=== PATIENT | female | born 1970 | race Caucasian/White ===

== ENCOUNTER 2021-05-07 17:53 | Observation (INO) | payer BC, OTHER, SELFPAY ==
[2021-05-07] MEDS ORDERED: NA CHLORIDE 0.9% 1,000 ML ONE (20:39)
[2021-05-07 20:45] LABS: Basophils % 1.3 % (0-1.3); Lymphocytes % 18.4 % (15.3-44.8); RBC Red Blood Cell Count 4.72 M/uL (3.86-4.86)
[2021-05-07 20:50] LABS: Protime INR 1.09
[2021-05-07 21:10] LABS: ALT/SGPT 21 U/L (12-78); AST/SGOT 9 U/L (15-37); Albumin 3.7 g/dL (3.4-5.0); Alkaline Phosphatase 79 U/L (45-117); BUN Blood Urea Nitrogen 11 mg/dL (7-18); Bicarbonate 29 mmol/L (21-32); Bilirubin Direct 0.1 mg/dL (0-0.2); Bilirubin Total 0.3 mg/dL (0.2-1.0); Glucose Level 109 mg/dL (74-106); Magnesium 2.2 mg/dL (1.8-2.4); NT PRO-BNP 19 pg/mL (<125); Potassium 3.7 mmol/L (3.5-5.1); Protein, Total 7.9 g/dL (6.4-8.2); Sodium Level 139 mmol/L (136-145); Troponin (Emerg Dept Use Only) < 0.02 ng/mL (0.0-0.045)
[2021-05-07] MEDS ORDERED: ACETAMINOPHEN 500 MG TAB ONE (21:32)
--- NOTE | 2021-05-07 21:51 | RAD REPORT ---
EXAM DESCRIPTION: RAD - Chest Single View - 05/07/2021 9:07 pm CLINICAL HISTORY: SOB;Swelling COMPARISON: None TECHNIQUE: AP portable chest image was obtained 05/07/2021 9:07 pm . FINDINGS: Lungs are clear. Heart and vasculature are normal. No measurable pleural effusion and no p neumothorax. No acute bony abnormality seen. No acute aortic findings suspected. Artifact overlies lo wer lung simpson. IMPRESSION: No acute cardiopulmonary process.
--- NOTE | 2021-05-07 23:54 | ER ---
Nurse's Notes [facility] Name: Shirin Escobar Age: 50 yrs Sex: Female : 1970 Arrival Date: 05/07/2021 Time: 17:54 Bed 17 Private MD: Diagnosis: Retropharyngeal Edema, Pharyngitis, Neck Pain Presentation: 05/07 19:13 Chief complaint: Patient states: Woke up yesterday with throat swelling and pain with lp1 swallowing, feeling of lower neck swelling/lump; Reports pain to back of neck when swallowing. Coronavirus screen: chills, fever, headache, sore throat. Ebola Screen: No symptoms or risks identified at this time. Risk Assessment: Do you want to hurt yourself or someone else? Patient reports no desire to harm self or others. Onset of symptoms was May 06, 2021. 19:13 Method Of Arrival: Ambulatory lp1 19:13 Acuity: SAMUEL 3 lp1 19:18 Initial Sepsis Screen: Does the patient meet any 2 criteria? No. Patient's initial lp1 sepsis screen is negative. Does the patient have a suspected source of infection? No. Patient's initial sepsis screen is negative. INFORMATION ASSOC: 19:17 LMP N/A - Irregular menses lp1 Historical: - Allergies: 19:16 No Known Allergies; lp1 - Home Meds: 19:16 Veronica Oral [Active]; lp1 - PMHx: 19:16 None; lp1 - PSHx: 19:16 cyst removal; lp1 - Immunization history:: Adult Immunizations up to date. - Social history:: Smoking status: Patient denies any tobacco usage or history of. Screenin:19 Abuse screen: Denies threats or abuse. Denies injuries from another. Nutritional lp1 screening: No deficits noted. Tuberculosis screening: No symptoms or risk factors identified. Fall Risk None identified. Assessment: 20:38 General: Appears in no apparent distress. comfortable, obese, well groomed, well bs2 developed, well nourished, Behavior is calm, cooperative, appropriate for age. Pain: Complains of pain in thyroid cartilage. Neuro: Level of Consciousness is awake, alert, obeys commands, Oriented to person, place, time, situation, Appropriate for age Automatic Door Mechanic are equal bilaterally Moves all extremities. Full function Gait is steady, Speech is normal, Facial symmetry appears normal, Pupils are PERRLA, Intact. Cardiovascular: No deficits noted. Respiratory: Reports shortness of breath on exertion. GI: No signs and/or symptoms were reported involving the gastrointestinal system. : No signs and/or symptoms were reported regarding the genitourinary system. EENT: Reports difficulty swallowing since last night. Derm: No signs and/or symptoms reported regarding the dermatologic system. Musculoskeletal: No signs and/or symptoms reported regarding the musculoskeletal system. Vital Signs: 19:18 BP 134 / 93; Pulse 103; Resp 18; Temp 100(O); Pulse Ox 100% on R/A; Weight 99.79 kg lp1 (R); Height 5 ft. 5 in. (165.10 cm); Pain 7/10; 20:32 BP 139 / 89; Pulse 101; Resp 26; Temp 100.9(O); Pulse Ox 100% on R/A; mh5 23:03 BP 111 / 63; Pulse 89; Resp 15; Temp 98.6(O); Pulse Ox 98% ; Pain 5/10; bs2 05/08 01:26 BP 109 / 61; Pulse 89; Resp 15; Temp 98.6; Pulse Ox 100% ; Pain 6/10; bs2 05/07 19:18 Body Mass Index 36.61 (99.79 kg, 165.10 cm) lp1 ED Course: 05/07 17:54 Patient arrived in ED. as 19:15 Triage completed. lp1 19:15 Arm band placed on left wrist. lp1 19:20 Patient has correct armband on for positive identification. lp1 19:45 Jerry Block MD is Attending Physician. mh7 19:58 Peggy Parker, RN is Primary Nurse. bs2 19:59 COVID-19 (Coronavirus) Document "Date of Onset" if Symptomatic Sent. bs2 20:31 Placed in gown. Bed in low position. Call light in reach. Side rails up X 1. Adult w/ mh5 patient. satellite project site monitor on. Pulse ox on. NIBP on. 20:31 EKG done, by ED staff, reviewed by Jerry Block MD COVID swab sent to lab. mh5 20:35 Rapid Strep Sent. bs2 20:35 Influenza Screen (a \\T\\ B) Sent. bs2 20:35 Troponin (emerg Dept Use Only) Sent. bs2 20:35 PT-INR Sent. bs2 20:35 NT PRO-BNP Sent. bs2 20:35 Magnesium Sent. bs2 20:35 LFT's Sent. bs2 20:35 CBC with Diff Sent. bs2 20:35 Basic Metabolic Panel Sent. bs2 20:36 Group A Streptococcus Rapid Sc Sent. bs2 20:36 TSH Sent. bs2 20:36 D-Dimer Sent. bs2 20:41 Inserted saline lock: 20 gauge in right antecubital area, using aseptic technique. bs2 Blood collected. 21:07 XRAY Chest (1 view) In Process Unspecified. EDMS 22:26 CT Head C Spine In Process Unspecified. EDMS 22:27 CT Soft Tissue Neck W/contr In Process Unspecified. EDMS 23:26 Blood Culture Adult (2) Sent. bs2 23:27 Throat Culture Sent. bs2 23:53 Bernard Smith MD is Hospitalizing Provider. [facility] 05/08 01:24 No provider procedures requiring assistance completed. Patient admitted, IV remains in bs2 place. 07:45 Primary Nurse role handed off by Peggy Parker, JUANITA bp 07:45 Gabriele Sanderson, RN is Primary Nurse. bp Administered Medications: 05/07 20:36 Drug: NS 0.9% 1000 ml Route: IV; Rate: 1000 ml; Site: right antecubital; bs2 05/08 01:25 Follow up: IV Status: Completed infusion bs2 05/07 21:19 Drug: Tylenol 1000 mg Route: PO; bs2 23:26 Follow up: Response: No adverse reaction bs2 23:37 Drug: Clindamycin 900 mg Route: IVPB; Infused Over: 30 mins; Site: right antecubital; bs2 05/08 01:24 Follow up: IV Status: Completed infusion bs2 05/07 23:54 CANCELLED (Physician Discretion; pp): Rocephin (cefTRIAXone) 1 grams IV at per protocol bs2 once; Given slow IV push per pharmacy instructions 05/08 00:00 Drug: Unasyn (ampicillin-sulbactam) 3 grams Route: IVPB; Infused Over: 30 mins; Site: bs2 right antecubital; 01:24 Follow up: IV Status: Completed infusion bs2 00:00 Drug: SOLU-Medrol (methylPrednisoLONE) 80 mg Route: IVP; Site: right antecubital; bs2 01:24 Follow up: Response: No adverse reaction bs2 Outcome: 05/07 23:54 Decision to Hospitalize by Provider. [facility] 05/08 01:25 Condition: stable bs2 Instructed on the need for admit. 14:08 Discharged to home with family, FROM [facility] bp 14:08 Patient left the ED. bp Signatures: Dispatcher [employer] Lexi Brito Laura, RN RN lp1 Greer Simmons 5 Gabriele Sanderson RN RN bp Jerry Block MD MD 7 Peggy Parker RN RN bs2 Corrections: (The following items were deleted from the chart) 05/07 19:16 19:13 Chief complaint: Patient states: Woke up yesterday with throat swelling and pain lp1 with swallowing, feeling of lower neck swelling/lump lp1 19:16 19:13 Coronavirus screen: At this time, the client does not indicate any symptoms lp1 associated with coronavirus-19. lp1 19:20 19:18 Pulse 103bpm; Resp 18bpm; Pulse Ox 100% RA; Temp 100F Oral; 99.79 kg Reported; lp1 Height 5 ft. 5 in.; BMI: 36.6; Pain 7/10; lp1 20:41 20:[address] [facility] bs2
--- NOTE | 2021-05-07 23:54 | EDPHYS ---
Physician Documentation [facility] Name: Shirin Escobar Age: 50 yrs Sex: Female : 1970 Arrival Date: 05/07/2021 Time: 17:54 Bed 17 Private MD: ED Physician Jerry Block HPI: 05/07 20:05 This 50 yrs old Female presents to ER via Ambulatory with complaints of Stiff mh7 Neck, Neck Swelling, Shortness Of Breath. 20:05 The patient presents with sore throat. mh7 20:05 The patient describes throat pain as intermittent. Onset: The symptoms/episode mh7 began/occurred yesterday. Severity of symptoms: At their worst the symptoms were moderate, yesterday, in the emergency department the symptoms have improved, moderately. Modifying factors: The symptoms are alleviated by nothing, the symptoms are aggravated by swallowing. Associated signs and symptoms: Pertinent positives: chills, fever, flu-like symptoms, myalgias, shortness of breath Sore throat neck pain, Pertinent negatives chest pain, cough, diarrhea, earache, headache, nausea, rhinorrhea, vomiting. 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 - Social history:: Smoking status: Patient denies any tobacco usage or history of. ROS: 20:05 Eyes: Negative for injury, pain, redness, and discharge, Cardiovascular: Negative for mh7 chest pain, palpitations, and edema, Abdomen/GI: Negative for abdominal pain, nausea, vomiting, diarrhea, and constipation, Back: Negative for injury and pain, : Negative for injury, bleeding, discharge, and swelling, MS/Extremity: Negative for injury and deformity, Skin: Negative for injury, rash, and discoloration, Neuro: Negative for headache, weakness, numbness, tingling, and seizure, Psych: Negative for depression, anxiety, suicide ideation, homicidal ideation, and hallucinations, Allergy/Immunology: Negative for hives, rash, and allergies, Endocrine: Negative for neck swelling, polydipsia, polyuria, polyphagia, and marked weight changes, Hematologic/Lymphatic: Negative for swollen nodes, abnormal bleeding, and unusual bruising. Exam: 20:05 Constitutional: This is a well developed, well nourished patient who is awake, alert, mh7 and in no acute distress. Head/Face: Normocephalic, atraumatic. Eyes: Pupils equal round and reactive to light, extra-ocular motions intact. Lids and lashes normal. Conjunctiva and sclera are non-icteric and not injected. Cornea within normal limits. Periorbital areas with no swelling, redness, or edema. 20:05 Chest/axilla: Normal chest wall appearance and motion. Nontender with no deformity. No lesions are appreciated. Cardiovascular: Regular rate and rhythm with a normal S1 and S2. No gallops, murmurs, or rubs. Normal PMI, no JVD. No pulse deficits. Respiratory: Lungs have equal breath sounds bilaterally, clear to auscultation and percussion. No rales, rhonchi or wheezes noted. No increased work of breathing, no retractions or nasal flaring. Abdomen/GI: Soft, non-tender, with normal bowel sounds. No distension or tympany. No guarding or rebound. No evidence of tenderness throughout. Back: No spinal tenderness. No costovertebral tenderness. Full range of motion. Skin: Warm, dry with normal turgor. Normal color with no rashes, no lesions, and no evidence of cellulitis. MS/ Extremity: Pulses equal, no cyanosis. Neurovascular intact. Full, normal range of motion. Neuro: Awake and alert, GCS 15, oriented to person, place, time, and situation. Cranial nerves II-XII grossly intact. Motor strength 5/5 in all extremities. Sensory grossly intact. Cerebellar exam normal. Normal gait. Psych: Awake, alert, with orientation to person, place and time. Behavior, mood, and affect are within normal limits. 20:05 ENT: External ear(s): are unremarkable, Ear canal(s): are normal, clear, TM's: are normal, Nose: is normal, Mouth: is normal, Posterior pharynx: Airway: normal, Tonsils: with erythema, with exudate, no ulcerations, Uvula: normal, swelling, is not appreciated, erythema, that is mild, exudate, that is mild, peritonsillar mass, is not appreciated, pooling of secretions, is not appreciated, Dental exam: normal, Voice: is normal. Vital Signs: 19:18 BP 134 / 93; Pulse 103; Resp 18; Temp 100(O); Pulse Ox 100% on R/A; Weight 99.79 kg lp1 (R); Height 5 ft. 5 in. (165.10 cm); Pain 7/10; 20:32 BP 139 / 89; Pulse 101; Resp 26; Temp 100.9(O); Pulse Ox 100% on R/A; mh5 23:03 BP 111 / 63; Pulse 89; Resp 15; Temp 98.6(O); Pulse Ox 98% ; Pain 5/10; bs2 05/08 01:26 BP 109 / 61; Pulse 89; Resp 15; Temp 98.6; Pulse Ox 100% ; Pain 6/10; bs2 05/07 19:18 Body Mass Index 36.61 (99.79 kg, 165.10 cm) lp1 MDM: 05/07 23:50 Differential diagnosis: bronchitis, epiglottitis, laryngitis, juvenal's angina, mh7 peritonsillar abscess pharyngitis, retropharyngeal abcess tonsillitis, tracheobronchitis, upper respiratory infection, uvulitis, viral syndrome. Data reviewed: vital signs, nurses notes, lab test result(s), CBC, electrolytes, radiologic studies, CT scan, plain films. Data interpreted: Pulse oximetry: on room air is 98 %. Interpretation: normal. Counseling: I had a detailed discussion with the patient and/or guardian regarding: the historical points, exam findings, and any diagnostic results supporting the discharge/admit diagnosis, lab results, radiology results, the need for further work-up and treatment in the hospital. Response to treatment: the patient's symptoms have mildly improved after treatment. Physician consultation: Teena Heredia MD was contacted at 23:40, regarding patient's condition, and will see patient in inpatient room, would like admission per Dr. Bernard Smith MD. 23:54 Patient medically screened. [facility] 05/07 19:41 Order name: COVID-19 (Coronavirus) Document "Date of Onset" if Symptomatic 05/07 19:53 Order name: SARS-COV-2 RT PCR; Complete Time: 21:06 [facility] 05/07 20:02 Order name: Rapid Strep [facility] 05/07 20:02 Order name: Influenza Screen (a \\T\\ B); Complete Time: 21:33 [facility] 05/07 20:02 Order name: Basic Metabolic Panel; Complete Time: 21:27 [facility] 05/07 20:02 Order name: CBC with Diff; Complete Time: 21:06 [facility] 05/07 20:02 Order name: LFT's; Complete Time: 21:27 [facility] 05/07 20:02 Order name: Magnesium; Complete Time: 21:27 [facility] 05/07 20:02 Order name: NT PRO-BNP; Complete Time: 21:27 [facility] 05/07 20:02 Order name: PT-INR; Complete Time: 21:06 [facility] 05/07 20:02 Order name: Troponin (emerg Dept Use Only); Complete Time: 21:27 [facility] 05/07 20:02 Order name: TSH; Complete Time: 21:27 [facility] 05/07 20:02 Order name: Group A Streptococcus Rapid Sc; Complete Time: 21:33 [facility] 05/07 20:02 Order name: XRAY Chest (1 view); Complete Time: 22:43 [facility] 05/07 20:04 Order name: CT Head C Spine [facility] 05/07 20:04 Order name: CT Soft Tissue Neck W/contr [facility] 05/07 20:13 Order name: D-Dimer; Complete Time: 21:06 [facility] 05/07 21:12 Order name: T4 Free; Complete Time: 21:27 [facility] 05/07 21:19 Order name: Blood Culture Adult (2) bs2 05/07 21:33 Order name: Throat Culture [facility] 05/08 06:05 Order name: CBC with Automated Diff EDMT 05/08 06:13 Order name: Comprehensive Metabolic Panel [facility] 05/08 06:13 Order name: C-Reactive Protein [facility] 05/08 06:13 Order name: Magnesium EDMT 05/08 06:13 Order name: Thyroid Stimulating Hormone [facility] 05/08 06:31 Order name: Sedimentation Rate, [place] [facility] 05/08 06:51 Order name: Procalcitonin EDMT 05/08 07:26 Order name: CBC Smear Scan [facility] 05/07 20:02 Order name: EKG; Complete Time: 20:03 [facility] 05/07 20:02 Order name: Cardiac monitoring; Complete Time: 20:30 7 05/07 20:02 Order name: EKG - Nurse/Tech; Complete Time: 20:30 7 05/07 20:02 Order name: IV Saline Lock; Complete Time: 20:36 7 05/07 20:02 Order name: Labs collected and sent; Complete Time: 20:35 7 05/07 20:02 Order name: O2 Per Protocol; Complete Time: 20:05 7 05/07 20:02 Order name: O2 Sat Monitoring; Complete Time: 20:05 [facility] Administered Medications: 20:36 Drug: NS 0.9% 1000 ml Route: IV; Rate: 1000 ml; Site: right antecubital; bs2 05/08 01:25 Follow up: IV Status: Completed infusion 2 05/07 21:19 Drug: Tylenol 1000 mg Route: PO; bs2 23:26 Follow up: Response: No adverse reaction 2 23:37 Drug: Clindamycin 900 mg Route: IVPB; Infused Over: 30 mins; Site: right antecubital; bs2 05/08 01:24 Follow up: IV Status: Completed infusion 2 05/07 23:54 CANCELLED (Physician Discretion; pp): Rocephin (cefTRIAXone) 1 grams IV at per protocol bs2 once; Given slow IV push per pharmacy instructions 05/08 00:00 Drug: Unasyn (ampicillin-sulbactam) 3 grams Route: IVPB; Infused Over: 30 mins; Site: bs2 right antecubital; 01:24 Follow up: IV Status: Completed infusion bs2 00:00 Drug: SOLU-Medrol (methylPrednisoLONE) 80 mg Route: IVP; Site: right antecubital; bs2 01:24 Follow up: Response: No adverse reaction bs2 Disposition Summary: 05/07/21 23:54 Hospitalization Ordered Hospitalization Status: Inpatient Admission [facility] Provider: Bernard Smith Condition: Stable [facility] Problem: new [facility] Symptoms: have improved [facility] Bed/Room Type: Standard [facility] Location: [facility] ER HOLD(05/08/21 01:49) cg Room Assignment: ERHOLD-(05/08/21 01:49) cg Diagnosis - Retropharyngeal Edema, Pharyngitis, Neck Pain mh7 Forms: - Medication Reconciliation Form 7 - SBAR form [facility] Signatures: Dispatcher [employer] EDMT Ryann Velasquez RN RN lp1 Franklin Riley FNP-C FNP-Cla1 Sis Dey RN RN Jerry Block MD MD 7 Peggy Parker RN RN bs2 Corrections: (The following items were deleted from the chart) 05/07 19:53 19:42 [facility] 23:54 23:13 Rocephin (cefTRIAXone) 1 grams IV at per protocol once; Given slow IV push per bs2 pharmacy instructions ordered. [facility] 23:54 23:54 Rocephin (cefTRIAXone) 1 grams IV at per protocol once; Given slow IV push per bs2 pharmacy instructions ordered. bs2 05/08 00:43 05/07 23:54 [facility] 05/08 01:33 00:[address] [place] [address] 01:49 05/07 23:54 Telemetry/MedSurg (Inpatient) [facility] 05/08 01:49 01:33 cg
[2021-05-07] MEDS ORDERED: CLINDAMYCIN 900MG/D5W 900 MG/50 ML IVPB IV ONE (23:58)
[2021-05-08] MEDS ORDERED: AMPICILLIN/SULBACTAM 3GM/VIAL ONE ×2 (00:14→06:25)
[2021-05-08] MEDS ORDERED: METHYLPREDNISOLONE 40 MG INJ ONE (00:14)
[2021-05-08] MEDS ORDERED: NA CHLORIDE 0.9% 100 ML ONE ×2 (00:18→06:25)
--- NOTE | 2021-05-08 00:24 | P.HP ---
Certification for Inpatient Patient admitted to: Inpatient With expected LOS: >2 Midnights Patient will require the following post-hospital care: None Practitioner: I am a practitioner with admitting privileges, knowledge of patient current condition, hospital course, and medical plan of care. Services: Services provided to patient in accordance with Admission requirements found in Title 42 Section 412.3 of the Code of Federal Regulations <Franklin Riley - Last Filed: 05/08/21 00:14> Patient History Date of Service: 05/08/21 Primary Care Provider: None Reason for admission: Throat/neck pain, fever History of Present Illness: 50-year-old otherwise healthy female presented to the emergency department for 1 day of neck pain/fevers. Patient reports pain in her throat that radiates to the back of her neck when she swallows or moves her neck. Patient was evaluated in the emergency department labs were significant for white blood cell count 11.[address] scan of the head and C-spine without contrast and CT of the neck with IV contrast patient was noted to have retropharyngeal fluid with no rim enhancement suggestive of edema rather than abscess, no other acute findings were noted. ED provider discussed case with ENT on-call who recommended admission with IV antibiotics/IV steroids. - Past Medical/Surgical History -: None -: Psychosocial/ Personal History: Patient is employed as a teacher, lives at home with her - Family History Mother -: Diabetes Brother -: Diabetes Sister -: Diabetes - Social History Smoking Status: Never smoker Alcohol use: No CD- Drugs: No Caffeine use: Yes Place of Residence: Home <Franklin Riley - Last Filed: 05/08/21 00:14> Date of Service: 05/08/21 <Bernard Smith - Last Filed: 05/08/21 15:03> Review of Systems 10-point ROS is otherwise unremarkable General: Fever, Chills, Malaise ENT: Throat Pain, Other (Neck pain) <Franklin Riley - Last Filed: 05/08/21 00:14> Physical Examination - Physical Exam General: Alert, In no apparent distress, Oriented x3 HEENT: Atraumatic, PERRLA, Mucous membr. moist/pink, EOMI, Sclerae nonicteric Neck: Supple, 2+ carotid pulse no bruit, No LAD, Without JVD or thyroid abnormality Respiratory: Clear to auscultation bilaterally, Normal air movement Cardiovascular: Regular rate/rhythm, Normal S1 S2 Capillary refill: <2 Seconds Gastrointestinal: Normal bowel sounds, No tenderness Musculoskeletal: No tenderness Integumentary: No rashes Neurological: Normal speech, Normal strength at 5/5 x4 extr, Normal tone, Normal affect Lymphatics: No axilla or inguinal lymphadenopathy - Studies Laboratory Data (last 24 hrs) 05/07/21 20:30: PT 12.6 H, INR 1.09 05/07/21 20:30: WBC 11.10 H, Hgb 12.1, Hct 37.0, Plt Count 294 05/07/21 20:30: Sodium 139, Potassium 3.7, BUN 11, Creatinine 1.04, Glucose 109 H, Magnesium 2.2, Total Bilirubin 0.3, AST 9 L, ALT 21, Alkaline Phosphatase 79 Microbiology Data (last 24 hrs): 05/07/21 20:30 Nasopharnyx Influenza Type A Antigen Screen - Final 05/07/21 20:30 Nasopharnyx Influenza Type B Antigen Screen - Final 05/07/21 20:30 Throat Group A Streptococcus Rapid Screen - Final <Franklin Riley - Last Filed: 05/08/21 00:14> - Studies Laboratory Data (last 24 hrs) 05/07/21 20:30: PT 12.6 H, INR 1.09 05/07/21 20:30: WBC 11.10 H, Hgb 12.1, Hct 37.0, Plt Count 294 05/07/21 20:30: Sodium 139, Potassium 3.7, BUN 11, Creatinine 1.04, Glucose 109 H, Magnesium 2.2, Total Bilirubin 0.3, AST 9 L, ALT 21, Alkaline Phosphatase 79 Microbiology Data (last 24 hrs): 05/07/21 20:30 Nasopharnyx Influenza Type A Antigen Screen - Final 05/07/21 20:30 Nasopharnyx Influenza Type B Antigen Screen - Final 05/07/21 20:30 Throat Group A Streptococcus Rapid Screen - Final <Bernard Smith - Last Filed: 05/08/21 15:03> Assessment and Plan - Plan Assessment: Fever, throat/neck pain with CT scan demonstrating retropharyngeal edema Plan: Fever, throat/neck pain with CT scan demonstrating retropharyngeal edema: Concern for possible developing retropharyngeal abscess, case was discussed with ENT by emergency department physician. Continue with Unasyn 3 g every 6 as well as Solu-Medrol 60 mg every 6 IV. Clear liquids at this time as patient has pain with swallowing. Appreciate further input from ENT. DVT PPX: Lovenox Code status: Full Discharge Plan: Home Plan to discharge in: 48 Hours - Advance Directives Does patient have a Living Will: No Does patient have a Durable POA for Healthcare: No - Code Status/Comfort Care Code Status Assessed: Yes (Full code) Critical Care: No Time Spent Managing Pts Care (In Minutes): 55 <Franklin Riley - Last Filed: 05/08/21 00:14> - Plan Patient seen and examined this morning on rounds. Reports some improvement in her symptoms with antibiotics and steroids. ENT was consulted in the ER. Evaluated the patient. Patient was deemed stable for discharge home with antibiotics and to follow-up with ENT. <Bernard Smith - Last Filed: 05/08/21 15:03>
[2021-05-08] MEDS ORDERED: ACETAMINOPHEN 500 MG TAB PO PRN (03:30)
[2021-05-08] MEDS ORDERED: ONDANSETRON 4 MG/2 ML VIAL IV PRN (03:30)
[2021-05-08] MEDS ORDERED: NA CHLORIDE 0.9% 1,000 ML IV SCH (03:30)
[2021-05-08] MEDS ORDERED: MORPHINE 2 MG/ML SYR IV PRN (03:30)
[2021-05-08 03:37] VITALS: BMI 36.6
[2021-05-08 06:00] LABS: Basophils % 0.1 % (0-1.3); Hematocrit 37.4 % (36.0-45.0); Lymphocytes % 10.5 % (15.3-44.8); MPV 9.3 fL (7.6-11.3); RBC Red Blood Cell Count 4.72 M/uL (3.86-4.86)
[2021-05-08 06:13] LABS: Albumin 3.7 g/dL (3.4-5.0); Bilirubin Total 0.4 mg/dL (0.2-1.0); C-Reactive Protein 67.9 mg/L (<3.00); Magnesium 2.2 mg/dL (1.8-2.4); Potassium 3.5 mmol/L (3.5-5.1); Protein, Total 8.1 g/dL (6.4-8.2); Thyroid Stimulating Hormone 2.11 uIU/mL (0.360-3.740)
[2021-05-08] MEDS: METHYLPREDNISOLONE 40 MG INJ IV SCH ×2 (06:23→12:00)
[2021-05-08] MEDS: AMPICILLIN/SULBACT 3 GM in NA CHLORIDE 0.9% 100 ML IVPB SCH ×2 (06:23→12:00)
[2021-05-08] MEDS ORDERED: NA CHLORIDE 0.9% 1,000 ML ONE (06:25)
[2021-05-08] MEDS ORDERED: METHYLPREDNISOLONE 125 MG INJ ONE ×2 (06:26→12:19)
[2021-05-08 07:26] LABS: Blood Morphology Comment NOT SEEN (NOT SEEN); Platelet Estimate ADEQ; White Blood Cell Scan OK (OK)
[2021-05-08] MEDS ORDERED: ENOXAPARIN 40 MG/0.4 ML SQ SCH (09:00)
[2021-05-08] MEDS ORDERED: ENOXAPARIN 40 MG/0.4 ML SQ ONE (11:25)
[2021-05-08 12:52] VITALS: BP 116/62; TEMP 97.9
[2021-05-08 14:31] VITALS: O2SAT 100
--- NOTE | 2021-05-09 09:00 | EKG ---
Test Date: 2021-05-07 Test Time: 19:22:44 Purchasing Officer: [place] MEASUREMENT RESULTS: Intervals: Rate: 100 [place]: 124 QRSD: 74 QT: 320 QTc: 412 [place]: P: 33 [place]: 124 QRS: -23 T: 41 INTERPRETIVE STATEMENTS: Normal sinus rhythm Minimal voltage criteria for LVH, may be normal variant Borderline ECG No previous ECG available for comparison Electronically Signed On 05-09-21 08:57:32 CDT by Brigido Mccoy
--- NOTE | 2021-05-09 12:03 | RAD REPORT ---
EXAM DESCRIPTION: CT - Head C Spine Mpr Wo Con - 05/08/2021 5:51 am CLINICAL HISTORY: Pain;Swelling. Lower cervical bulge with pain while swallowing. TECHNIQUE: Axial, coronal, and sagittal images through the brain were performed in the absence of in travenous contrast. CT of the cervical spine was performed without contrast. CT of the neck was performed following intravenous administration of contrast. Axial, coronal, and sa gittal reconstructions were created and sent to PACS. These exams were performed according to our departmental dose-optimization program which includes use of Automated Exposure Control, adjustment of the mA and/or kV according to patient size and/or use o f iterative reconstruction technique. COMPARISON: None. FINDINGS: CT Head: The brain parenchyma appears unremarkable. There is no intra-axial or extra-axial bleed seen. There i s no mass or mass effect. The ventricles are normal in size, shape, and configuration. The orbital co ntents appear unremarkable. Mucosal retention cysts in the bilateral maxillary sinuses. The remaining visualized paranasal sinuse s and mastoid air cells are clear. No acute fracture is identified. CT cervical spine: No acute osseous abnormality identified. Vertebral body height and alignment are maintained. No atlan todental interval widening. Atlantoaxial alignment is maintained. The facet joints are well aligned. The posterior elements are intact. The occipital condyles are well aligned with the C1 lateral masses . The transverse foramina are intact. No significant central canal or neuroforaminal narrowing throug hout the cervical spine. CT Neck: There is a retropharyngeal/prevertebral fluid which measures 0.8 cm in thickness and approximately 4. 6 cm in length. No rim enhancement is identified. Unremarkable appearance of the salivary glands. Thi n epiglottis. Unremarkable appearance of the thyroid gland. No cervical lymphadenopathy. IMPRESSION: 1. Retropharyngeal fluid with no rim enhancement, suggestive of edema rather than absc ess. 2. No acute osseous abnormality identified in the cervical spine. 3. No acute intracranial abnormality identified. Electronically signed by: Carly Samuels MD 05/07/2021 11:02 PM CDT Due to temporary technical issues with the PACS/Fluency reporting system, reports are being signed by the in house radiologist without review as a courtesy to ensure prompt reporting. The interpreting r adiologist is fully responsible for the content of the report.
--- NOTE | 2021-05-09 12:06 | RAD REPORT ---
EXAM DESCRIPTION: CT - Soft Tissue Neck W/Contr - 05/08/2021 5:51 am CLINICAL HISTORY: Pain;Swelling. Lower cervical bulge with pain while swallowing. TECHNIQUE: Axial, coronal, and sagittal images through the brain were performed in the absence of in travenous contrast. CT of the cervical spine was performed without contrast. CT of the neck was performed following intravenous administration of contrast. Axial, coronal, and sa gittal reconstructions were created and sent to PACS. These exams were performed according to our departmental dose-optimization program which includes use of Automated Exposure Control, adjustment of the mA and/or kV according to patient size and/or use o f iterative reconstruction technique. COMPARISON: None. FINDINGS: CT Head: The brain parenchyma appears unremarkable. There is no intra-axial or extra-axial bleed seen. There i s no mass or mass effect. The ventricles are normal in size, shape, and configuration. The orbital co ntents appear unremarkable. Mucosal retention cysts in the bilateral maxillary sinuses. The remaining visualized paranasal sinuse s and mastoid air cells are clear. No acute fracture is identified. CT cervical spine: No acute osseous abnormality identified. Vertebral body height and alignment are maintained. No atlan todental interval widening. Atlantoaxial alignment is maintained. The facet joints are well aligned. The posterior elements are intact. The occipital condyles are well aligned with the C1 lateral masses . The transverse foramina are intact. No significant central canal or neuroforaminal narrowing throug hout the cervical spine. CT Neck: There is a retropharyngeal/prevertebral fluid which measures 0.8 cm in thickness and approximately 4. 6 cm in length. No rim enhancement is identified. Unremarkable appearance of the salivary glands. Thi n epiglottis. Unremarkable appearance of the thyroid gland. No cervical lymphadenopathy. IMPRESSION: 1. Retropharyngeal fluid with no rim enhancement, suggestive of edema rather than absc ess. 2. No acute osseous abnormality identified in the cervical spine. 3. No acute intracranial abnormality identified. Electronically signed by: Carly Samuels MD 05/07/2021 11:02 PM CDT Due to temporary technical issues with the PACS/Fluency reporting system, reports are being signed by the in house radiologist without review as a courtesy to ensure prompt reporting. The interpreting r adiologist is fully responsible for the content of the report.
--- NOTE | 2021-05-10 12:53 | CON ---
Date of Consultation: 05/07/2021 Chief Complaint: Sore throat and throat swelling. History Of Present Illness: The patient is a pleasant 50-year-old female, who presented to the emergency room after experiencing acute onset of neck swelling, shortness of breath and throat irritation. The patient stated she has never had these symptoms before, but she does have a dowager hump and she noted that approximately 24 hours ago, she had significant swelling of the dowager hump with neck pain and flu-like symptoms and then she noticed that the radiation of swelling and pain was to her throat and it was causing throat clearing, odynophagia and dysphagia to fluid and solids. She also reports chills, fever, and flu-like symptoms, and shortness of breath. I switched the antibiotic from clindamycin to IV Unasyn 3 g q 6 hours and started IV Solu- Medrol 80 mg q.6 and when I arrived to her bedside, she was much improved. She does still have some sore throat and odynophagia, but states that the swelling is improved. She is able to tolerate carbonated liquids without regurgitation or aspiration. She denies other ears, nose, or throat complaints today. She has a history of frequent bilateral tonsil stones whereby she has to extract the tonsil stones with instrumentation and occasionally causes sore throat. Past Medical History: None stated on the record. Allergies: NO KNOWN DRUG ALLERGIES. Past Surgical History: She had a cyst removal. Immunizations: Adult immunization is up-to date. All childhood vaccinations were given. Social History: Denies tobacco or alcohol. Home Medications: Include Veronica for seasonal allergies. Review of Systems: Eyes: Denies drainage, blurred or double vision. Ears: Denies otorrhea or otalgia or mastoid pain. Nose: Denies nasal congestion, obstruction, rhinorrhea, or postnasal drip. Throat: Positive for sore throat, odynophagia, throat/neck swelling. Constitutional: Positive for fevers, chills, myalgias. Neck: Positive for posterior neck pain and swelling. Physical Examination: Vital Signs: Stable. General: The patient is awake, alert, oriented, in no acute distress. Eyes: PERRLA/EOMI. Ears: Bilateral patent external auditory canals and tympanic membranes intact with no evidence of middle ear effusion or mastoid tenderness. Nose: Bilateral patent nares and nasal cavity with moist mucosa and midline septum. Oral Cavity: Midline uvula and posterior oropharynx intact with non-swollen bilateral tonsils and no evidence of tonsil stones visualized. The patient's voice is normal. No evidence of muffled voice or dysphonia. Neck: Supple. Trachea midline. No evidence of lymphadenopathy or thyromegaly palpated. Posterior neck does demonstrate a significant dowager hump and tenderness to palpation, but no evidence of erythema or swelling. Laboratory Data: CT scan of the soft tissue neck with contrast demonstrated what appears to be mild retropharyngeal swelling. I reviewed the films myself and did not see any rim enhancing lesions. At worst, phlegmon is possible or possible cellulitis, but no evidence of abscess that needs surgical drainage. After obtaining verbal consent, the patient was placed into a sniffing position and a flexible laryngoscope was introduced into the left nasal cavity along the floor back to the nasopharynx. The nasopharynx is intact with no evidence of adenoidal hypertrophy or obstruction. Eustachian tube orifices are patent and intact. The scope was then advanced after the patient gave a sniffing motion and I was able to advance into the hypopharynx. The base of tongue is intact. No evidence of enlargement or erythema/edema. Epiglottis is intact with no evidence of epiglottitis. There is slight swelling along the right hypopharyngeal wall posteriorly. After voicing, the patient was able to medialize the true vocal folds to protect her airway. I also was able to have her swallow some liquid and the swallowing was somewhat delayed with delayed epiglottic inversion and laryngeal elevation, but she did swallow several times with carbonated soda without regurgitation, aspiration, or cough. The scope was then removed and withdrawn completely. She tolerated the procedure well. Diagnoses: 1. Retropharyngeal cellulitis. 2. Dysphagia. 3. Tonsil stones. Plan: 1. She is much improved after starting Unasyn 3 g IV q.6 as well as Solu- Medrol 80 mg IV q.6. We will give her several more doses and then switch her to oral Augmentin and a prednisone taper. 2. She will follow up in 1 week in my office. Also discharge is pending Dr. Smith's evaluation. Thank you Dr. Block and Dr. Smith for this most interesting consult. KD/MODL Voice ID: [id number] Report ID: [id number] TORO
--- NOTE | 2021-05-19 16:06 | CON ---
Date of Consultation: 05/08/2021 Chief Complaint: Throat pain. History Of Present Illness: The patient is a pleasant 50-year-old female, who presented acutely to [facility] emergency department after experiencing throat swelling and pain with difficulty swallowing, exten ding into the back of the neck. A CT scan of the neck was performed, which demonstrated possible ret ropharyngeal abscess. Thus, I was consulted for further evaluation and treatment. Upon arrival to [facility], the patient was in stable condition with no evidence of acute distress. I was able to speak with the patient and she described the throat pain is intermittent with symptoms beginning 24-48 hour s ago. She describes severity is moderate and that her symptoms have improved since starting IV ster oids and antibiotics. She denies chills, fever, flu-like symptoms, shortness of breath, earache, yazmin sea, vomiting, diarrhea, chest pain, or cough/throat clearing. No other ENT complaints today. Past Surgical History: None. Past Medical History: None. Home Medications: Oral Veronica for allergic rhinitis. Immunization History: Adult immunizations up-to-date. Social History: Denies tobacco use or alcohol. Allergies: NO KNOWN DRUG ALLERGIES. Review of Systems: Eyes: Denies pain, redness, or discharge. Ears: Denies otorrhea, otalgia, hearing loss, tenderness. Nose: Frequent bilateral nasal congestion, rhinorrhea, postnasal drip, but negative for obstruction. Throat: Positive for moderate pain and swelling and odynophagia and dysphagia. Neck: Posterior neck tenderness, but denies crepitus. Physical Examination: Constitutional: She is a well developed, well nourished patient who is awake, alert, oriented x3. Eyes: PERRLA/EOMI. Ears: Bilateral external auditory canals patent. Tympanic membranes intact with no evidence of midd le ear effusion or tympanic membrane perforation. Nose: Midline septum. Moist mucosa with mild clear rhinorrhea. Oral Cavity: Midline uvula. Soft and hard palates are nonedematous. No evidence of cobblestoning o f the posterior oropharynx or edema. Airways intact. Neck: No lymphadenopathy or thyromegaly palpated. Posterior neck reveals dowager's hump and slight tenderness to palpation, but no evidence of erythema or edema or evidence of abscess. Flexible nasopharyngolaryngoscopy: The patient was placed into the sitting position and after lubric ating the flexible laryngoscope, I was able to introduce the scope bilaterally along the floors of ava th nasal cavities back to the level of the nasopharynx. There was mild turbinate hypertrophy. Bilat eral eustachian tube orifices were patent without edema. Adenoids were nonobstructive. The patient was able to demonstrate a sniffing motion and then I was able to advance the scope to the level of th e hypopharynx and larynx. The epiglottis intact and nonedematous. Hypopharyngeal lateral gloria were intact with evidence of erythema, but no edema. False and true vocal folds had adequate adduction a nd abduction motion. Area of epiglottic fold is nonedematous or erythematous. She did have slight b ulging of the right posterior aspect of the hypopharynx and this was more evident during deglutition with liquid soda. There was also delayed laryngeal elevation and epiglottic inversion during liquid deglutition. There was no evidence of aspiration, regurgitation, however. The patient had a widely patent airway with no evidence of obstruction. The scope was withdrawn and the patient tolerated the procedure well. Laboratory Data: CT scan of the soft tissue neck with contrast was reviewed and I do not see the brandon earance of an abscess, rather it looks more like cellulitis/possible phlegmon. Sagittal views did de monstrate a patent airway. Axial views also demonstrate widely patent airway. Diagnoses: 1.Acute laryngitis. 2.Oropharyngeal dysphagia. Plan: 1.We will give another dose of Unasyn and Depo-Medrol steroid IV and then I feel comfortable dischar ging the patient home on oral Augmentin and a prednisone steroid taper. 2.Follow up in my office within 1 week of discharge. GARY/CORALL Voice ID: [id number] Report ID: [id number]
--- OUTSIDE RECORDS SUMMARY | 2021-06-02 23:00 | XMS REPORT | Clinical Summary ---
:1970 Author Organization [facility] [place] [facility] Address [address] [place] [address] Care Team Providers Name Role Phone Unavailable Primary Care Provider Unavailable Allergies Not on File Medications Not on file Active Problems Not on file Social History Tobacco Use Types Packs/Day Years Used Date Never Assessed Sex Assigned at Date Recorded Not on file Last Filed Vital Signs Not on file Plan of Treatment Not on file Results Not on fileafter 05/31/2020
--- OUTSIDE RECORDS SUMMARY | 2021-06-02 23:00 | XMS REPORT | Continuity of Care Document ---
:1970 Author Organization [facility] t Address [facility] [place] [address] Care Team Providers Name Role Phone MIKE Attending Clinician Unavailable Problems Condition Condition Condition Status Onset Resolution Last Treating Co mments Source Name Details Category Date Date Treatment Clinician Date History of History of Problem Resolve Univers candidal candidal d ity of [place] it[place] it[place] Physici ans History of History of Problem Resolve Univers Cough Cough d ity of [place] Physici ans Visit for Visit for Problem Active Uni vers screening screening [place]ogram [place] Physici ans History of History of Problem Resolve Univers Mass of Mass of d ity of abdomen abdomen [place] Physici ans History of History of Problem Resolve Univers Normal Normal d ity of routine routine [place] physical physical Physic i examinatio examinatio an s n n History of History of Problem Resolve Univers Subacute Subacute d ity of and and [place] chronic chronic Physici vaginitis vaginitis ans [place] Problem Active Unive rs ity of [place] Physici ans Tension Tension Problem Active Univers type type ity of headache headache [place] Physici ans Arthralgia Arthralgia Problem Active U nivers of of ity of multiple multiple [place] sites sites Physici ans Lipoma Lipoma Problem Active Univers ity of [place] Physici ans Abdominal Abdominal Problem Active Uni vers wall pain wall pain ity of [place] Physici ans Abdominal Abdominal Problem Active Uni vers pain, RLQ pain, RLQ ity of (right (right [place] lower lower Physici quadrant) quadrant) ans Leiomyoma Leiomyoma Problem Active Uni vers of uterus of uterus ity of [place] Physici ans Ovarian Ovarian Problem Active Univers cyst, left cyst, left it y of [place] Physici ans Irregular Irregular Problem Active Uni vers periods/me periods/me it y of nstrual nstrual [place] cycles cycles Physici ans Irregular Irregular Problem Active Uni vers Length Of Length Of ity of Menstrual [place]strual [place] Periods Periods Physici ans Anemia Anemia Problem Active Univers ity of [place] Physici ans Allergies, Adverse Reactions, Alerts This patient has no known allergies or adverse reactions. Family History Family Member Diagnosis Comments Start Date Stop Date Source Unknown Family Family history of Family History University of Member Diabetes Mellitus [place] P hysicians Social History Social Habit Start Date Stop Date Quantity Comments Source Sex Assigned At [birth year] MD [place] 00:00:00 00:00:00 Smoking Status Start Date Stop Date Source Never smoker [facility] Medications Ordered Filled Start Stop Current Ordering Indication Dosage Frequency Signature Comments Components Source Medication Medication Date Date Medication? Clinician (SIG) Name Name Ferralet 90 Ferralet 90 Yes KEITH Take one Univers 90-1 MG 90-1 MG 2-06 MIKE M.D. tablet i ty of Oral Tablet Oral Tablet 00:00: daily 00 Physici ans Metaxalone Metaxalone 0 Yes POURAN Q0.3333D TAKE 1 Univers 800 MG Oral 800 MG Oral 4-23 STEFF TABLET 3 ity of Tablet Tablet 00:00: M.D. TIMES [place] 00 DAILY Physici NEEDED FOR ans MUSCLE SPASM. Vital Signs Vital Name Observation Time Observation Value Comments Source BP Systolic 2018-08-05 114 mm[Hg] Location: [facility] 13:38:00 Position: [place] Physician s Sitting BP Diastolic 2018-08-05 75 mm[Hg] Location: [facility] 13:38:00 Position: [place] Physician s Sitting Height 2018-08-05 65 [in_us] [facility] 13:38:00 [place] Physician s Weight 2018-08-05 204 [lb_av] University 13:38:00 [place] Physician s Body Mass Index 2018-08-05 33.95 kg/m2 University o f Calculated 13:38:00 [place] Physician s Temperature 2018-08-05 97.8 [degF] Method: Oral [facility] 13:38:00 [place] Physician s Heart Rate 2018-08-05 83 /min Quality: Normal University o f 13:38:00 [place] Physician s O2 SAT 2018-08-05 98 % [facility] 13:38:00 [place] Physician s Procedures Procedure Date / Time Performing Clinician Source Performed . [facility] - PAP 2018-08-05 00:00:00 University o f [place] Physicians . [facility] - Affirm VPIII 2018-08-05 00:00:00 [facility] (BV Panel) Physicians US Pelvis with Pelvis 2018-08-05 00:00:00 [facility] Transvaginal [id number] Physicians MARZENA Digital Mammo 2018-08-05 00:00:00 [facility] Screening Davon [id number] Physicians History of [place] o [facility] Section Low Transverse Physician s Encounters Start End Encounter Admission Attending Care Care Encounter Source Date/Time Date/Time Type Type Clinicians Facility Department ID 2018-09-04 2018-09-04 Outpatient MDA MDA [id number] 17:36:54 23:59:00 Rolando o n 2018-08-05 2018-08-05 Appointmen RADHA MCKEON [facility] [id number] Univers 13:40:00 13:40:00 t; KEITH MCKEON, Jemima Velasco M.D. Physici ans Results Test Description Test Time Test Comments Results Result Comments Source [QL] CBC (INCLUDES DIFF/PLT) 2018-08-05 14:40:01 Test Item Value Reference Range Interpretation Comme nts WBC (test code = 6690-2) 6.7 {K/CMM} 3.7-10.4 RBC; Below Low Threshold (test code = 789-8) 4.00 {M/CMM} 4.20-5.40 Hgb; Below Low Threshold (test code = 718-7) 10.6 g/dl 12.0-16.0 Hct; Below Low Threshold (test code = 71257-1) 32.1 % 36.0-48 .0 MCV (test code = 787-2) 80.3 fL 80.0-98.0 MCH; Below Low Threshold (test code = 785-6) 26.6 pg 27.0-31.0 MCHC (test code = 786-4) 33.1 g/dl 32.0-36.0 RDW (test code = 788-0) 14.1 % 11.5-14.5 Platelet (test code = 24692-9) 309 {K/CMM} 133-450 Mean Platelet Volume (test code = 81256-4) 9.7 fL 7.4-10.4 [facility] Physicians[QL] [id number] 14:40:01 Test Item Value Reference Range Interpretation Comments Segmented Neutrophils (test code 63.5 % 45.0-75.0 = 39391-9) Monocytes (test code = 86632-1) 8.0 % 2.0-12.0 Lymphocytes (test code = 36952-0) 25.4 % 20.0-40.0 Eosinophils (test code = 62747-1) 2.5 % 0.0-4.0 Basophils (test code = 706-2) 0.6 % 0.0-1.0 Segs-Bands # (test code = 4.2 {K/CMM} 1.5-8.1 53608-3) Lymphocytes # (test code = 1.7 {K/CMM} 1.0-5.5 68910-5) Monocytes # (test code = 99785-1) 0.5 {K/CMM} 0.0-0.8 Eosinophils # (test code = 0.2 {K/CMM} 0.0-0.5 30740-9) [facility] Physicians[[facility]] [id number] 14:40:01 Test Item Value Reference Range Interpretation Comments Estridiol Lvl (test 40.3 pg/ml Menstrua ting Females: code = 2243-4) (By day in cy tom related to LH Peak) F ollicular phase (-12 to - 4 days) 19.5 - 144.2 p g/mL Midcycle (-3 to +2 days) 63 .9 - 356.7 pg/mL L uteal Phase (+4 t o +12 days) 55.8 - 214.2 pg/mL Postmen opausal (untreated) 0.0 - 32.2 pg/mLMa les: 0.0 - 39.8 pg/mL [facility] Physicians[[facility]] [id number] 14:40:01 Test Item Value Reference Range Interpretation Comments Follicle Stimulating 18.1 {miU/ml} FSH pe diatric ranges Hormone (test code = publish ed in the 44608-9) literature* age(yrs) male(miu/ml) age(yrs) female(miu/ml) -------- -------- P repub ertalChildren: 2-8 0-3 .0 2-8 1.0-4.2Puberty: <9.0 0 -3.0 <9.2 1.0-4.2 9.8-14.5 1.8-3.2 9.2-13.7 1.0-10.8 10.7-15.4 1.2-5.8 10.0-14.4 1.5-12.8 11.8-16.2 2.0-9.2 10.7-15.6 1.5-11.7 12.8-17.3 2.6-11.0 11.8-18.6 1.0-9.2*[facility] has no t established normalranges fo r the above age groups.Adult reference range s: Male: 1.0 - 12.0 miu/ml Female: Follicular phas e: 3.0-20.0 miu/m l Mid-cycle: 9.0 -26.0 miu/ml Luteal phase: 1.0-12.0 miu/m l Post menopausal: 18.0-153.0 miu/ ml [facility] Physicians[[facility]] T4, [id number] 14:40:01 Test Item Value Reference Range Interpretation Comments T4 Free (test code = 3024-7) 0.84 ng/dl 0.76-1.46 [facility] Physicians[[facility]] TSH, 3RD [id number] 14:40:01 Test Item Value Reference Range Interpretation Comments TSH; Above High Threshold 5.370 {uIU/ml} 0.360-3.740 (test code = 93101-8) [facility] PhysiciansUT Pathology [id number] 00:00:00 Test Item Value Reference Range Interpretation Comments REPORT (test code = REPORT) See Comment [facility] PhysiciansRE[facility] SERVICESath - [id number] 00:00:00 Test Item Value Reference Range Interpretation Comments GC REPORT (test code = GC REPORT) Negative Chlamydia REPORT (test code = Negative 99062-8) [facility] Physicians [facility] - [id number] 00:00:00 Test Item Value Reference Range Interpretation Comments PAP REPORT (test code = 20595-6) NEGATIVE [facility] Physicians. [facility] - HPV High [id number] 00:00:00 Test Item Value Reference Range Interpretation Comments HPV High Risk REPORT (test code = Negative HPV High Risk REPORT) [facility] Physicians
== END 2021-05-08 14:09 | disposition home or self-care (01) ==
LOC: ER 17:53 → INTOOBSV 05-08 00:15 → ERHOLD 05-08 00:15
PROVIDERS: ADMIT Hospitalist; ATTEND Hospitalist
PROC: 0CJS8ZZ Inspection of Larynx, Via Natural or Artificial Opening Endoscopic (ICD-10-PCS; principal; 2021-05-07)
PROC: 0CJS8ZZ Inspection of Larynx, Via Natural or Artificial Opening Endoscopic (ICD-10-PCS; 2021-05-08)
DX: J39.1 Other abscess of pharynx (principal); J04.0 Acute laryngitis; J35.8 Other chronic diseases of tonsils and adenoids; M54.2 Cervicalgia; J30.9 Allergic rhinitis, unspecified; I10 Essential (primary) hypertension; E11.9 Type 2 diabetes mellitus without complications; M54.9 Dorsalgia, unspecified; Z20.822 Contact with and (suspected) exposure to COVID-19; Z83.3 Family history of diabetes mellitus
CPT/HCPCS: 31575 ×2; 93005; 87040 ×2; 87070; 85025 ×2; 80048; 36415; 83735 ×2; 85610; 85379; 80076; 87081; 85652; 84443 ×2; 84484; 84439; 80053; 84145; 83880; 86140; 87804 ×2; 70450; 72125; 70491; 71045; 96375; 99284; U0003; Q9967; J1650; J7030 ×2; J2930 ×2; J0295; G0378 ×2

== ENCOUNTER 2021-05-30 09:19 | Emergency (ER) | payer OTHER ==
[2021-05-30 09:52] LABS: Protime INR 0.98
[2021-05-30 09:57] LABS: Absolute Lymphocytes (CBC) 1.9 K/uL (0.7-4.9); Basophils % 0.5 % (0-1.3); Hematocrit 38.3 % (36.0-45.0); Lymphocytes % 23.7 % (15.3-44.8); MPV 8.2 fL (7.6-11.3)
[2021-05-30 10:08] LABS: ALT/SGPT 27 U/L (12-78); AST/SGOT 11 U/L (15-37); Albumin 3.6 g/dL (3.4-5.0); Alkaline Phosphatase 60 U/L (45-117); BUN Blood Urea Nitrogen 10 mg/dL (7-18); Bicarbonate 28 mmol/L (21-32); Bilirubin Direct 0.2 mg/dL (0-0.2); Bilirubin Total 0.5 mg/dL (0.2-1.0); Glucose Level 94 mg/dL (74-106); Magnesium 2.4 mg/dL (1.8-2.4); NT PRO-BNP 11 pg/mL (<125); Potassium 3.7 mmol/L (3.5-5.1); Protein, Total 7.1 g/dL (6.4-8.2); Sodium Level 139 mmol/L (136-145); Troponin (Emerg Dept Use Only) < 0.02 ng/mL (0.0-0.045)
--- NOTE | 2021-05-30 11:23 | RAD REPORT ---
EXAM DESCRIPTION: CT - Chest For Pe Angio - 05/30/2021 10:59 am CLINICAL HISTORY: Chest pain COMPARISON: None. TECHNIQUE: Dynamically enhanced axial 3 mm thick images of the chest were obtained during administra tion of <100> mL Isovue 370 IV contrast. Coronal and oblique reconstruction images were generated and reviewed. Exam utilizes a protocol for optimal evaluation of pulmonary arterial tree. Maximum intensity projections 3D imaging was utilized All CT scans are performed using dose optimization technique as appropriate and may include automated exposure control or mA/KV adjustment according to patient size. FINDINGS: A pulmonary embolus is not seen. A thoracic aortic aneurysm is not noted. A bovine aorta A pleural effusion is not seen. A pericardial effusion is not seen. A lung consolidation is not present. Fatty liver IMPRESSION: Negative for a pulmonary embolism.
--- NOTE | 2021-05-30 11:43 | ER ---
Nurse's Notes [facility] Name: Shirin Escobar Age: 50 yrs Sex: Female : 1970 Arrival Date: 05/30/2021 Time: 09:21 Bed 8 Private MD: Diagnosis: Chest pain, unspecified Presentation: 05/30 09:23 Chief complaint: Patient states: "I got a pain on my right shoulder blade and it would aa5 come right through my chest and I was all sweaty and clammy and it lasted about 20 minutes". Pt states "I just been sick with sinus stuff". 09:23 Coronavirus screen: At this time, the client does not indicate any symptoms associated aa5 with coronavirus-19. Ebola Screen: No symptoms or risks identified at this time. Initial Sepsis Screen: Does the patient meet any 2 criteria? No. Patient's initial sepsis screen is negative. Does the patient have a suspected source of infection? No. Patient's initial sepsis screen is negative. Risk Assessment: Do you want to hurt yourself or someone else? Patient reports no desire to harm self or others. Onset of symptoms was May 30, 2021. 09:23 Acuity: SAMUEL 3 aa5 09:23 Method Of Arrival: Ambulatory aa5 Triage Assessment: 09:30 General: Appears in no apparent distress. comfortable, Behavior is cooperative, bp appropriate for age, anxious. Pain: Complains of pain in right scapular area Pain radiates to mid-sternal area. EENT: No deficits noted. Neuro: No deficits noted. Cardiovascular: Reports chest pain. Respiratory: No deficits noted. GI: No signs and/or symptoms were reported involving the gastrointestinal system. : No signs and/or symptoms were reported regarding the genitourinary system. Derm: No signs and/or symptoms reported regarding the dermatologic system. Musculoskeletal: No deficits noted. Historical: - Allergies: 09:31 No Known Allergies; aa5 - Home Meds: :31 None [Active]; aa5 - PMHx: :31 None; aa5 - PSHx: 09:31 Cyst removal; section; aa5 - Immunization history:: Client reports receiving the 2nd dose of the Covid vaccine. - Social history:: Smoking status: Patient denies any tobacco usage or history of. Screenin:35 Abuse screen: Denies threats or abuse. Denies injuries from another. Nutritional bp screening: No deficits noted. Tuberculosis screening: No symptoms or risk factors identified. Fall Risk None identified. Assessment: 09:30 General: SEE TRIAGE NOTE. bp 10:37 Reassessment: PT TO CT. bp 11:55 Reassessment: PT D/C HOME AMBULATORY WITH FAMILY, DX WITH NONSPECIFIC CHEST PAIN. bp Vital Signs: 09:23 BP 120 / 85; Pulse 104; Resp 18 S; Temp 97.2(TE); Pulse Ox 96% on R/A; Weight 99.79 kg aa5 (R); Height 5 ft. 5 in. (165.10 cm) (R); 10:30 BP 114 / 77; Pulse 105; Resp 21; Pulse Ox 97% ; bp 11:55 BP 115 / 85; Pulse 96; Resp 21; Temp 97.5; Pulse Ox 99% ; bp 09:23 Body Mass Index 36.61 (99.79 kg, 165.10 cm) aa5 ED Course: 09:21 Patient arrived in ED. am2 09:22 Arm band placed on Patient placed in an exam room, on a stretcher. aa5 09:24 Vilma Washburn MD is Attending Physician. sp3 09:30 EKG done, by ED staff, reviewed by Vilma Washburn MD. aa5 09:31 Triage completed. aa5 09:39 Gabriele Sanderson, RN is Primary Nurse. bp 09:41 XRAY Chest (1 view) In Process Unspecified. EDMS 09:44 Inserted saline lock: 22 gauge in right antecubital area, using aseptic technique. ll1 Blood collected. 10:35 Patient has correct armband on for positive identification. Bed in low position. Call bp light in reach. Side rails up X2. school lunch monitor on. Pulse ox on. NIBP on. 10:59 CT Chest For PE Angio In Process Unspecified. EDMS 11:42 Brigido Mccoy MD is Referral Physician. sp3 11:55 No provider procedures requiring assistance completed. IV discontinued, intact, bp bleeding controlled, No redness/swelling at site. Pressure dressing applied. Patient maintains SpO2 saturation greater than 95% on room air. Administered Medications: No medications were administered Outcome: 11:43 Discharge ordered by . sp3 11:55 Discharged to home ambulatory. bp 11:55 Condition: stable 11:55 Discharge instructions given to patient, Instructed on discharge instructions, follow up and referral plans. Demonstrated understanding of instructions, follow-up care. 11:57 Patient left the ED. bp Signatures: Dispatcher [employer] EDYamini Gillette, RN RN aa5 Julia Perez am2 Gabriele Sanderson RN RN Hector Aldridge RN RN ll1 Vilma Washburn MD MD sp3
--- NOTE | 2021-05-30 11:44 | EDPHYS ---
Physician Documentation [facility] Name: Shirin Escobar Age: 50 yrs Sex: Female : 1970 Arrival Date: 05/30/2021 Time: 09:21 Bed 8 Private MD: ED Physician Vilma Washburn HPI: 05/30 10:14 This 50 yrs old Female presents to ER via Ambulatory with complaints of Chest sp3 Pain, sweats, Dizziness. 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 Patient states that she had back pain that "went through her chest" into the anterior part of her chest. Pain is now improved however still present. Patient denies shortness of breath, neck pain, fever, cough, congestion, URI symptoms, headache, abdominal pain, nausea, vomiting, diarrhea, lower back pain, syncope, pain or numbness or tingling in her extremities, or any other ROS at this time. Patient is on no medications and has not taken anything for her symptoms. Patient also has no history of ACS, PE, hypertension, diabetes, or any other medical problems.. Historical: - Allergies: 09:31 No Known Allergies; aa5 - Home Meds: 09:31 None [Active]; aa5 - PMHx: 09:31 None; aa5 - PSHx: 09:31 Cyst removal; section; aa5 - Immunization history:: Client reports receiving the 2nd dose of the Covid vaccine. - Social history:: Smoking status: Patient denies any tobacco usage or history of. ROS: 10:15 Constitutional: Negative for fever, chills, and weight loss, Eyes: Negative for injury, sp3 pain, redness, and discharge, ENT: Negative for injury, pain, and discharge, Neck: Negative for injury, pain, and swelling, Abdomen/GI: Negative for abdominal pain, nausea, vomiting, diarrhea, and constipation, Back: Negative for injury and pain, MS/Extremity: Negative for injury and deformity, Skin: Negative for injury, rash, and discoloration, Neuro: Negative for headache, weakness, numbness, tingling, and seizure, Psych: Negative for depression, anxiety, suicide ideation, homicidal ideation, and hallucinations, Allergy/Immunology: Negative for hives, rash, and allergies, Endocrine: Negative for neck swelling, polydipsia, polyuria, polyphagia, and marked weight changes, Hematologic/Lymphatic: Negative for swollen nodes, abnormal bleeding, and unusual bruising. 10:15 All other systems are negative. Exam: 10:16 Constitutional: This is a well developed, well nourished patient who is awake, alert, sp3 and in no acute distress. Head/Face: Normocephalic, atraumatic. Eyes: Pupils equal round and reactive to light, extra-ocular motions intact. Lids and lashes normal. Conjunctiva and sclera are non-icteric and not injected. Cornea within normal limits. Periorbital areas with no swelling, redness, or edema. ENT: Nares patent. No nasal discharge, no septal abnormalities noted. External auditory canals are clear. Oropharynx with no redness, swelling, or masses, exudates, or evidence of obstruction, uvula midline. Mucous membranes moist. Neck: Trachea midline, no thyromegaly or masses palpated, and no cervical lymphadenopathy. Supple, full range of motion without nuchal rigidity, or vertebral point tenderness. No Meningismus. Chest/axilla: Normal chest wall appearance and motion. Nontender with no deformity. No lesions are appreciated. Respiratory: Lungs have equal breath sounds bilaterally, clear to auscultation and percussion. No rales, rhonchi or wheezes noted. No increased work of breathing, no retractions or nasal flaring. Abdomen/GI: Soft, non-tender, with normal bowel sounds. No distension or tympany. No guarding or rebound. No evidence of tenderness throughout. Back: No spinal tenderness. No costovertebral tenderness. Full range of motion. Skin: Warm, dry with normal turgor. Normal color with no rashes, no lesions, and no evidence of cellulitis. MS/ Extremity: Pulses equal, no cyanosis. Neurovascular intact. Full, normal range of motion. Neuro: Awake and alert, GCS 15, oriented to person, place, time, and situation. Cranial nerves II-XII grossly intact. Motor strength 5/5 in all extremities. Sensory grossly intact. Cerebellar exam normal. Normal gait. Psych: Awake, alert, with orientation to person, place and time. Behavior, mood, and affect are within normal limits. 10:16 Cardiovascular: Tachycardia with otherwise normal cardiac exam.. Vital Signs: 09:23 BP 120 / 85; Pulse 104; Resp 18 S; Temp 97.2(TE); Pulse Ox 96% on R/A; Weight 99.79 kg aa5 (R); Height 5 ft. 5 in. (165.10 cm) (R); 10:30 BP 114 / 77; Pulse 105; Resp 21; Pulse Ox 97% ; bp 11:55 BP 115 / 85; Pulse 96; Resp 21; Temp 97.5; Pulse Ox 99% ; bp 09:23 Body Mass Index 36.61 (99.79 kg, 165.10 cm) aa5 MDM: 09:28 Patient medically screened. sp3 10:24 Data reviewed: vital signs, nurses notes. ED course: 50-year-old female presents with sp3 chest pain rating to the back. Differential includes ACS, pulmonary embolism, thoracic dissection, other vascular compromise, sepsis, infection, pneumonia, gastritis, functional chest pain. Work-up with standard cardiac work-up and CT of the chest. Disposition based on work-up and patient course. Patient at this time declined any pain medications as she is feeling better. Will start normal saline 1 L as well given her tachycardia. Patient is afebrile.. 11:41 ED course: Stress no pulmonary embolism, aneurysm, consolidation, or any other critical sp3 findings. Will discharge patient home at this time.. 05/30 09:27 Order name: Basic Metabolic Panel; Complete Time: 10:52 sp3 05/30 09:27 Order name: CBC with Diff; Complete Time: 10:52 sp3 05/30 09:27 Order name: LFT's; Complete Time: 10:52 sp3 05/30 09:27 Order name: Magnesium; Complete Time: 10:52 sp3 05/30 09:27 Order name: NT PRO-BNP; Complete Time: 10:52 sp3 05/30 09:27 Order name: PT-INR; Complete Time: 10:52 sp3 05/30 09:27 Order name: Troponin (emerg Dept Use Only); Complete Time: 10:52 sp3 05/30 09:27 Order name: XRAY Chest (1 view) sp3 05/30 09:27 Order name: EKG; Complete Time: 09:28 sp3 05/30 09:27 Order name: Cardiac monitoring; Complete Time: 09:34 sp3 05/30 09:27 Order name: EKG - Nurse/Tech; Complete Time: 09:34 sp3 05/30 09:27 Order name: IV Saline Lock; Complete Time: 09:45 sp3 05/30 09:27 Order name: Labs collected and sent; Complete Time: 09:45 sp3 05/30 09:55 Order name: CT Chest For PE Angio; Complete Time: 11:40 sp3 05/30 09:27 Order name: O2 Per Protocol; Complete Time: 09:34 sp3 05/30 09:27 Order name: O2 Sat Monitoring; Complete Time: 09:34 sp3 Administered Medications: No medications were administered Disposition Summary: 05/30/21 11:43 Discharge Ordered Location: Home sp3 Condition: Stable sp3 Diagnosis - Chest pain, unspecified sp3 Followup: sp3 - With: Private Physician - When: As needed - Reason: Re-evaluation by your physician Followup: sp3 - With: Brigido Mccoy MD - When: - Reason: Recheck today's complaints Discharge Instructions: - Discharge Summary Sheet sp3 - Nonspecific Chest Pain, Adult sp3 Forms: - Medication Reconciliation Form sp3 - Thank You Letter sp3 - Antibiotic Education sp3 - Prescription Opioid Use sp3 Signatures: Dispatcher [employer] Yamini Tinsley, RN RN aa5 Vilma Washburn MD MD sp3
[2021-05-30 12:06] VITALS: BP 115/85; TEMP 97.5; O2SAT 99
--- NOTE | 2021-06-01 11:27 | EKG ---
Test Date: 2021-05-30 Test Time: 09:31:18 Irrigation Specialist: ROSEMARIE MEASUREMENT RESULTS: Intervals: Rate: 103 IN: 134 QRSD: 76 QT: 326 QTc: 427 [place]: P: 29 IN: 134 QRS: -9 T: 41 INTERPRETIVE STATEMENTS: Sinus tachycardia Minimal voltage criteria for LVH, may be normal variant Borderline ECG Compared to ECG 05/07/2021 19:22:44 Sinus rhythm no longer present Electronically Signed On 06-01-21 11:21:03 [employer] SUPERVISOR by Brigido Mccoy
--- OUTSIDE RECORDS SUMMARY | 2021-06-04 16:20 | XMS REPORT | Continuity of Care Document ---
:1970 Author Organization [facility] t Address [facility] [place] [address] Care Team Providers Name Role Phone IMKE Attending Clinician Unavailable Problems Condition Condition Condition [...] nivers of of ity of multiple multiple [place] sites sites Physici ans Lipoma Lipoma Problem [...] Family History University of Member Diabetes Mellitus [place] P hysicians Social History Social Habit Start Date Stop Date Quantity Comments Source Sex Assigned At [birth year] MD [place] 00:00:00 00:00:00 Smoking Status Start Date Stop Date Source Never smoker [facility] Physicians Medications Ordered Filled Start Stop Current [...] Source BP Systolic 2018-08-05 114 mm[Hg] Location: [facility] 13:38:00 Position: [place] Physician s Sitting BP Diastolic 2018-08-05 75 mm[Hg] Location: [facility] 13:38:00 Position: [place] Physician s Sitting Height 2018-08-05 65 [in_us] [facility] 13:38:00 [place] Physician s Weight 2018-08-05 204 [lb_av] University 13:38:00 [place] Physician s Body Mass Index 2018-08-05 33.95 kg/m2 University o f Calculated 13:38:00 [place] Physician s Temperature 2018-08-05 97.8 [degF] Method: Oral [facility] 13:38:00 [place] Physician s Heart Rate 2018-08-05 83 /min Quality: Normal University o f 13:38:00 [place] Physician s O2 SAT 2018-08-05 98 % [facility] 13:38:00 [place] Physician s Procedures Procedure Date / Time Performing Clinician Source Performed . [facility] - PAP 2018-08-05 00:00:00 [facility] o [facility] [place] Physicians . [facility] - Affirm VPIII 2018-08-05 00:00:00 [facility] (BV Panel) Physicians US Pelvis with Pelvis 2018-08-05 00:00:00 [facility] Transvaginal [id number] Physicians MARZENA Digital Mammo 2018-08-05 00:00:00 [facility] Screening Davon [id number] Physicians History of [place] o [facility] Section Low Transverse Physician s Encounters Start End Encounter Admission Attending Care Care Encounter Source Date/Time Date/Time Type Type Clinicians Facility Department ID 2018-09-04 2018-09-04 Outpatient MDA MDA [id number] 802 17:36:54 23:59:00 Rolando o n 2018-08-05 2018-08-05 Appointmen RADHA MCKEON [facility] [id number] Univers 13:40:00 13:40:00 t; KEITH MCKEON, [...] Hct; Below Low Threshold (test code = 05552-7) 32.1 % 36.0-48 .0 MCV (test code = 787-2) 80.3 fL 80.0-98.0 MCH; Below Low Threshold (test code = 785-6) 26.6 pg 27.0-31.0 MCHC (test code = 786-4) 33.1 g/dl 32.0-36.0 RDW (test code = 788-0) 14.1 % 11.5-14.5 Platelet (test code = 73696-2) 309 {K/CMM} 133-450 Mean Platelet Volume (test code = 69011-0) 9.7 fL 7.4-10.4 [facility] Physicians[QL] [id number] 14:40:01 Test Item Value Reference Range Interpretation Comments Segmented Neutrophils (test code 63.5 % 45.0-75.0 = 67105-6) Monocytes (test code = 78232-5) 8.0 % 2.0-12.0 Lymphocytes (test code = 98076-2) 25.4 % 20.0-40.0 Eosinophils (test code = 05110-7) 2.5 % 0.0-4.0 Basophils (test code = 706-2) 0.6 % 0.0-1.0 Segs-Bands # (test code = 4.2 {K/CMM} 1.5-8.1 75559-4) Lymphocytes # (test code = 1.7 {K/CMM} 1.0-5.5 92872-4) Monocytes # (test code = 76423-6) 0.5 {K/CMM} 0.0-0.8 Eosinophils # (test code = 0.2 {K/CMM} 0.0-0.5 78455-0) [facility] Physicians[[facility]] [id number] 14:40:01 Test Item Value Reference Range Interpretation [...] 32.2 pg/mLMa les: 0.0 - 39.8 pg/mL [facility] Physicians[[facility]] [id number] 14:40:01 Test Item Value Reference Range Interpretation Comments Follicle Stimulating 18.1 {miU/ml} FSH pe diatric ranges Hormone (test code = publish ed in the 04924-0) literature* age(yrs) male(miu/ml) age(yrs) female(miu/ml) -------- -------- P repub ertalChildren: 2-8 0-3 .0 2-8 1.0-4.2Puberty: <9.0 0 -3.0 <9.2 1.0-4.2 9.8-14.5 1.8-3.2 9.2-13.7 1.0-10.8 10.7-15.4 1.2-5.8 10.0-14.4 1.5-12.8 11.8-16.2 2.0-9.2 10.7-15.6 1.5-11.7 12.8-17.3 2.6-11.0 11.8-18.6 1.0-9.2*[facility] [place] has no t established normalranges fo r the above age groups.Adult reference range s: Male: 1.0 - 12.0 miu/ml Female: Follicular phas e: 3.0-20.0 miu/m l Mid-cycle: 9.0 -26.0 miu/ml Luteal phase: 1.0-12.0 miu/m l Post menopausal: 18.0-153.0 miu/ ml [facility] Physicians[[facility]] T4, [id number] 14:40:01 Test Item Value Reference Range Interpretation Comments T4 Free (test code = 3024-7) 0.84 ng/dl 0.76-1.46 [facility] Physicians[[facility]] TSH, 3RD [id number] 14:40:01 Test Item Value Reference Range Interpretation Comments TSH; Above High Threshold 5.370 {uIU/ml} 0.360-3.740 (test code = 58768-2) [facility] PhysiciansUT Pathology [id number] 00:00:00 Test Item Value Reference Range Interpretation Comments REPORT (test code = REPORT) See Comment [facility]ath - [id number] 00:00:00 Test Item Value Reference Range Interpretation Comments GC REPORT (test code = GC REPORT) Negative Chlamydia REPORT (test code = Negative 77726-7) [facility] Physicians [facility] - [id number] 00:00:00 Test Item Value Reference Range Interpretation Comments PAP REPORT (test code = 09453-8) NEGATIVE [facility] Physicians. [facility] - HPV High [id number] 00:00:00 Test Item Value Reference Range Interpretation Comments HPV High Risk REPORT (test code = Negative HPV High Risk REPORT) [facility] Physicians
--- OUTSIDE RECORDS SUMMARY | 2021-06-04 16:20 | XMS REPORT | Clinical Summary ---
:1970 Author Organization [facility] [place] [facility] Address [address] [place] [address] Care Team Providers Name Role Phone Unavailable [...]
== END 2021-05-30 11:57 | disposition home or self-care (01) ==
LOC: ER 09:19
DX: R07.9 Chest pain, unspecified (principal)
CPT/HCPCS: 93005; 85025; 80048; 36415; 83735; 85610; 80076; 84484; 83880; 71275; 71045; 99285; Q9967